=== PATIENT | female | born 1990 | race African-American/Black ===

== ENCOUNTER 2019-06-29 10:34 | Emergency (ER) | payer MEDICAID, OTHER ==
[~2019-06-29] VITALS: Ht 152.4 cm; Wt 102.5 kg
[2019-06-29 12:27] VITALS: BP 137/83
== END 2019-06-29 12:55 | disposition home or self-care (01) ==
LOC: ER 10:34
DX: H10.31 Unspecified acute conjunctivitis, right eye (principal); Z88.8 Allergy status to other drugs, medicaments and biological substances

== ENCOUNTER 2021-09-24 22:13 | Emergency (ER) | payer MEDICAID ==
[~2021-09-24] VITALS: Ht 154.9 cm; Wt 136.1 kg
[2021-09-24 23:25] LABS: Hemoglobin 12.9 g/dL (12.2-16.2); Lymphocytes # (auto) 1.7 10 ^3/uL (0.4-5.4); Lymphocytes % (auto) 14.9 % (10.0-50.0); Nucleated Red Blood Cells % 0.1 %
[2021-09-24 23:26] LABS: Basophils # (auto) 0.1 10 ^3/uL (0-0.2); Basophils % (auto) 0.8 % (0.0-2.0); Eosinophils # (auto) 0.3 10 ^3/uL (0-0.8); Eosinophils % (auto) 2.6 % (0.0-7.0); Hematocrit 37.2 % (36.0-46.0); Mean Corpuscular Hemoglobin 25.8 pg (28.0-32.0); Mean Corpuscular Hgb Conc. 34.6 g/dL (32.0-36.0); Mean Corpuscular Volume 74.7 fL (80.0-100.0); Monocytes # (auto) 0.8 10 ^3/uL (0-1.3); Monocytes % (auto) 6.7 % (0.0-12.0); Neutrophils # (auto) 8.7 10 ^3/uL (1.6-8.6); Red Blood Cells 4.99 10^6/uL (4.0-5.20); Red Cell Distribution Width 17.5 % (11.8-14.3); White Blood Cell 11.6 10^3/uL (4.4-10.8)
[2021-09-24 23:46] LABS: Albumin 3.5 g/dL (3.4-5.0); BUN/Creatinine Ratio 13.6; Calcium 9.2 mg/dL (8.5-10.1); Potassium 4.3 mmol/L (3.5-5.1)
[2021-09-24 23:48] LABS: Bilirubin, Total 0.3 mg/dL (0.2-1.0); Total Protein 7.7 g/dL (6.4-8.2)
[2021-09-25 08:00] VITALS: BP 122/74
[2021-09-25 10:32] LABS: Urine Bacteria NONE SEEN /hpf (None Seen); Urine Blood 3+ /uL (Negative); Urine Budding Yeast OCCASIONAL /hpf (None Seen); Urine Specific Gravity 1.016 (1.001-1.035); Urine WBC 904 /hpf (0 - 5)
== END 2021-09-25 10:38 | disposition home or self-care (01) ==
LOC: ER 22:13
DX: R55 Syncope and collapse (principal); Z88.8 Allergy status to other drugs, medicaments and biological substances
CPT/HCPCS: 36415; 70450; 80053; 81001; 84484; 85025; 93005

== ENCOUNTER 2022-09-15 03:34 | Emergency (ER) | payer MEDICAID ==
[~2022-09-15] VITALS: Ht 154.9 cm; Wt 140.0 kg
[2022-09-15 04:00] LABS: Hemoglobin 11.8 g/dL (12.2-16.2); Nucleated Red Blood Cells % 0.1 %
[2022-09-15 04:02] LABS: Basophils # (auto) 0.1 10 ^3/uL (0-0.2); Basophils % (auto) 1.2 % (0.0-2.0); Eosinophils # (auto) 0.6 10 ^3/uL (0-0.8); Eosinophils % (auto) 6.3 % (0.0-7.0); Lymphocytes # (auto) 4.1 10 ^3/uL (0.4-5.4); Lymphocytes % (auto) 42.8 % (10.0-50.0); Mean Corpuscular Hemoglobin 25.9 pg (28.0-32.0); Mean Corpuscular Hgb Conc. 33.7 g/dL (32.0-36.0); Monocytes # (auto) 0.7 10 ^3/uL (0-1.3); Monocytes % (auto) 7.8 % (0.0-12.0); Neutrophils % (auto) 41.9 % (37.0-80.0); Red Blood Cells 4.54 10^6/uL (4.0-5.20); Red Cell Distribution Width 17.5 % (11.8-14.3); White Blood Cell 9.5 10^3/uL (4.4-10.8)
[2022-09-15 04:21] LABS: INR 0.98 (0.9-1.15); Partial Thromboplastin Time 26.1 sec (24.6-33.4)
[2022-09-15 04:32] LABS: Calcium 9.3 mg/dL (8.5-10.1); Potassium 3.4 mmol/L (3.5-5.1)
[2022-09-15 04:35] LABS: Albumin 3.4 g/dL (3.4-5.0); BUN/Creatinine Ratio 14.5 (10.0-20.0); Magnesium 1.9 mg/dL (1.6-2.6)
[2022-09-15 04:38] LABS: Bilirubin, Total 0.3 mg/dL (0.2-1.0); Total Protein 7.9 g/dL (6.4-8.2)
[2022-09-15] MEDS ORDERED: PRED20TA2 PO (05:12)
[2022-09-15] MEDS ORDERED: AZIT250T9 PO (05:12)
[2022-09-15] MEDS ORDERED: AZITHROMYCIN 250 MG TAB PO ONE (05:15)
[2022-09-15] MEDS ORDERED: DexAMETHasone SOD PHOS 10MG/1ML VIAL INJ IM ONE (05:15)
[2022-09-15 06:18] VITALS: BP 133/65
== END 2022-09-15 06:25 | disposition home or self-care (01) ==
LOC: ER 03:34
DX: R07.89 Other chest pain (principal); R06.02 Shortness of breath; Z88.6 Allergy status to analgesic agent; Z79.899 Other long term (current) drug therapy
CPT/HCPCS: 36415; 71046; 80053; 83735; 83880; 84484; 85025; 85610; 85730; 93005; 99285; J1100

== ENCOUNTER 2023-02-07 11:58 | Emergency (ER) | payer MEDICAID ==
[~2023-02-07] VITALS: Ht 152.4 cm; Wt 127.8 kg
[~2023-02-07 11:58] MED LIST: AZIT-43 PO; PRED20TA2 PO
[2023-02-07 13:57] LABS: Alanine Aminotransferase 31 U/L (7-40); Albumin 4.4 g/dL (3.2-4.8); Alkaline Phosphatase 64 U/L (46-116); Anion Gap 4 (5-15); Aspartate Aminotransferase 18 U/L (13-40); Blood Urea Nitrogen 10 mg/dL (9-23); Calcium 9.3 mg/dL (8.7-10.4); Carbon Dioxide 28 mmol/L (20-30); Chloride 105 mmol/L (98-107); Glucose 106 mg/dL (74-106); Potassium 3.7 mmol/L (3.5-5.1); Sodium 137 mmol/L (136-145)
[2023-02-07 13:58] LABS: Bilirubin, Total 0.6 mg/dL (0.2-1.0); Total Protein 7.5 g/dL (5.7-8.2)
[2023-02-07 14:07] LABS: Urine Bacteria NONE SEEN /hpf (None Seen); Urine Blood Negative /uL (Negative); Urine Clarity HAZY (Clear); Urine Color Yellow (Yellow); Urine Mucus FEW (None Seen); Urine Protein, UAD 1+ (Negative); Urine Specific Gravity 1.025 (1.001-1.035); Urine WBC 2 /hpf (0 - 5)
[2023-02-07 14:09] LABS: Basophils # (auto) 0.2 10 ^3/uL (0-0.2); Basophils % (auto) 1.3 % (0.0-2.0); Eosinophils # (auto) 0.5 10 ^3/uL (0-0.8); Eosinophils % (auto) 4.1 % (0.0-7.0); Hematocrit 33.9 % (36.0-46.0); Hemoglobin 11.5 g/dL (12.2-16.2); Lymphocytes # (auto) 3.7 10 ^3/uL (0.4-5.4); Lymphocytes % (auto) 28.8 % (10.0-50.0); Mean Corpuscular Hemoglobin 26.1 pg (28.0-32.0); Mean Corpuscular Hgb Conc. 33.8 g/dL (32.0-36.0); Mean Corpuscular Volume 77.2 fL (80.0-100.0); Monocytes # (auto) 0.9 10 ^3/uL (0-1.3); Monocytes % (auto) 7.3 % (0.0-12.0); Neutrophils # (auto) 7.5 10 ^3/uL (1.6-8.6); Neutrophils % (auto) 58.5 % (37.0-80.0); Red Blood Cells 4.39 10^6/uL (4.0-5.20); Red Cell Distribution Width 17.4 % (11.8-14.3); White Blood Cell 12.8 10^3/uL (4.4-10.8)
[2023-02-07] MEDS ORDERED: HYDROmorphone HCL 2 MG/ML VL/or syr IV ONE (15:00)
[2023-02-07] MEDS ORDERED: ONDANSETRON HCL 4 MG/2 ML VIAL IM ONE (15:00)
[2023-02-07] MEDS ORDERED: OMNIPAQUE 12mg/ml 500ml ORAL SOLUTION PO ONE (15:12)
[2023-02-07] MEDS ORDERED: IOHEXOL 300 MG/ML 100ML BOTTLE IJ ONE (15:13)
[2023-02-07] MEDS ORDERED: HYDROmorphone HCL 2 MG/ML VL/or syr IM ONE (15:30)
[2023-02-07 20:30] VITALS: PULSE 90; RESP 16; O2SAT 100
[2023-02-07] MEDS ORDERED: CIPROFLOXACIN 400MG/200ML 200 ML IV ONE (20:45)
[2023-02-07] MEDS ORDERED: metroNIDAZOLE 500MG/100ML 100 ML IV ONE (20:45)
[2023-02-08 00:54] VITALS: BP 152/90; PULSE 83; RESP 16; TEMP 98.4; O2SAT 100
== END 2023-02-08 01:40 | disposition short-term general hospital (02) ==
LOC: ER 11:58
DX: K57.20 Diverticulitis of large intestine with perforation and abscess without bleeding (principal); Z88.6 Allergy status to analgesic agent
CPT/HCPCS: 36415; 74177; 80053; 81001; 85025; 87040; 93005; 96365; 96367; 99285; J0744; J3490; Q9967

== ENCOUNTER 2023-05-19 12:56 | Emergency (ER) | payer MEDICAID ==
[~2023-05-19] VITALS: Ht 154.9 cm; Wt 121.0 kg
[2023-05-19 13:05] VITALS: BP 145/85; PULSE 103; RESP 18; O2SAT 99
== END 2023-05-19 15:05 | disposition left against medical advice (07) ==
LOC: ER 12:56
DX: R51.9 Headache, unspecified (principal); M54.2 Cervicalgia; Z53.21 Procedure and treatment not carried out due to patient leaving prior to being seen by health care provider; V89.2XXA Person injured in unspecified motor-vehicle accident, traffic, initial encounter; Y93.89 Activity, other specified; Y92.410 Unspecified street and highway as the place of occurrence of the external cause; Y99.8 Other external cause status